=== PATIENT | male | born 2000 | race African-American/Black ===

== ENCOUNTER 2018-01-07 18:14 | Emergency (ER) | payer OTHER ==
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
[2018-01-07] MEDS ORDERED: TDAP ADULT 0.5 ML INJ (BOOSTRIX) IM ONE (18:47)
[2018-01-07] MEDS ORDERED: LET GEL TOPICAL 1 EA SYR TP ONE (18:50)
[2018-01-07] MEDS ORDERED: HYDROCOD/APAP 5/325 PREPACK#6 BTL TAKEHOME ONE (19:31)
[2018-01-07] MEDS ORDERED: IBUPROFEN 600 MG TAB PO ONE (19:32)
[2018-01-07] MEDS ORDERED: HYDROCODONE/APAP 5/325 TAB PO ONE (19:32)
[2018-01-07 20:56] VITALS: BP 120/95
== END 2018-01-07 20:52 | disposition home or self-care (01) ==
LOC: EDUNIT#
DX: S82.425A Nondisplaced transverse fracture of shaft of left fibula, initial encounter for closed fracture (principal); S22.31XA Fracture of one rib, right side, initial encounter for closed fracture; S80.212A Abrasion, left knee, initial encounter; S80.211A Abrasion, right knee, initial encounter; V13.4XXA Pedal cycle driver injured in collision with car, pick-up truck or van in traffic accident, initial encounter; Z23 Encounter for immunization
CPT/HCPCS: L0172